=== PATIENT | male | born 1965 | race Caucasian/White ===

== ENCOUNTER 2017-11-25 18:58 | Emergency (ER) | payer SELFPAY ==
[2017-11-25] MEDS: TETRACAINE 0.5% OPHTH SOLUTION 4ML BOTTLE. OS (19:33)
[2017-11-25] MEDS: FLUORESCEIN OPHTH TEST STRIP. OS (19:33)
[2017-11-25] MEDS: DIPHTH,PERTUSS(ACELL),TET TOX 0.5 ML DISP.SYRIN. VAX IM (20:08)
== END 2017-11-25 20:18 | disposition home or self-care (01) ==
LOC: ER 18:58
DX: S05.02XA Injury of conjunctiva and corneal abrasion without foreign body, left eye, initial encounter (principal); H11.32 Conjunctival hemorrhage, left eye; X58.XXXA Exposure to other specified factors, initial encounter; Y93.89 Activity, other specified; Y92.89 Other specified places as the place of occurrence of the external cause; Y99.8 Other external cause status
CPT/HCPCS: 90471; 90715; 99283